=== PATIENT | female | born 1960 | race Caucasian/White ===

== ENCOUNTER → 2023-05-17 08:05 | Outpatient (REF) | payer BC, SELFPAY ==
--- NOTE | 2023-05-17 13:28 | OID.BR.INTR ---
BETITOD Breast Navigator - Initial
- -
Date of Contact: 05/17/23
Met with patient. Patient given information on navigator services and support services available at [facility]. Will follow up as needed per protocol.
== END ==
LOC: WDC 08:05
PROVIDERS: ATTENDING PHYSICIAN Family Medicine
DX: N63.13 Unspecified lump in the right breast, lower outer quadrant (principal)
CPT/HCPCS: 88305; 19083; 77065; 88341; 88342; 88360; A4648

== ENCOUNTER → 2024-01-21 07:55 | Outpatient (REF) | payer BC, SELFPAY | LOC: WDC 07:55 | PROVIDERS: ATTENDING PHYSICIAN Family Medicine | DX: R92.8 Other abnormal and inconclusive findings on diagnostic imaging of breast (principal) | CPT/HCPCS: 76642 ==

== ENCOUNTER → 2024-07-07 08:23 | Outpatient (REF) | payer MEDICARE, OTHER, SELFPAY | LOC: WDC 08:23 | PROVIDERS: ATTENDING PHYSICIAN Family Medicine | DX: Z12.31 Encounter for screening mammogram for malignant neoplasm of breast (principal) | CPT/HCPCS: 77063; 77067 ==